=== PATIENT | female | born 1995 | race American Indian/Alaskan Native ===

== ENCOUNTER 2019-06-11 17:59 | Outpatient (CLI) | payer OTHER ==
[2019-06-11 18:46] VITALS: BP 131/92
== END 2019-06-11 18:51 | disposition home or self-care (01) ==
LOC: TRG 17:59
PROVIDERS: ATTEND Obstetrics & Gynecology
DX: O47.1 False labor at or after 37 completed weeks of gestation (principal); Z3A.38 38 weeks gestation of pregnancy

== ENCOUNTER 2019-06-13 11:42 | Outpatient (CLI) | payer OTHER ==
[2019-06-13 12:25] VITALS: BP 129/83
== END 2019-06-13 12:37 | disposition home or self-care (01) ==
LOC: TRG 11:42
PROVIDERS: ATTEND Obstetrics & Gynecology
DX: O47.1 False labor at or after 37 completed weeks of gestation (principal); Z3A.38 38 weeks gestation of pregnancy
CPT/HCPCS: 59025

== ENCOUNTER 2019-06-21 21:26 | Inpatient (IN) | payer OTHER ==
[2019-06-21] MEDS ORDERED: ACETAMINOPHEN 500 MG TAB PO ONE (21:54)
[2019-06-21 23:08] LABS: Bilirubin,Urine NEG (Negative); Blood,Urine SM (Negative); Color,Urine Straw (Yellow); Protein,Urine <15 mg/dL mg/dL (Negative); RBC,Urine < 1.0 /HPF (0.0-6.0); Urobilinogen,Urine < 2.0 mg/dL (<2.0); WBC,Urine < 1.0 /HPF (0.0-6.0)
--- NOTE | 2019-06-21 23:12 | History and Physical Report ---
History of Present Illness Date of examination: 06/21/19 Date of admission: 06/21/19 Chief complaint: headache x1 week; blurry vision History of present illness: Pt presents c/o headache and blurry vision. Initially bp was not elevated in the office but she was noted to have 2+proteinuria and had a 24 hr urine collection turned into the office today. In triage tonight she c/o having blurry vision that started today and headache. Pt admitted for IOL for gestional h ypertention/pre ecalmpasia with severe features. EDC Calculations LMP: 06/25/2019 EDC Confirmation: 06/25/2019 Gestational Age: 12 3/7 weeks Past History : 2 Term Births: 0 Premature Births: 0 Living Children: 0 Para: 0 Mult. Births: 0 Prev : 0 Aborta: 1 Elect. Ab: 0 Spont. Ab: 1 Ectopics: 0 Risk Factors: Smoked Tobacco Use: Never smoker Smokeless Tobacco Use: Never Passive smoke exposure: no Drug use: no HIV high-risk behavior: no Alcohol use: no Exercise: no Seatbelt use: 100 % Dietary Counseling: pn yes Past Medical History: Reviewed history from 12/01/2017 and no changes required: Negative Past Medical History Past Surgical History: Reviewed history from 12/01/2017 and no changes required: Negative Past Surgical History Past Medical History Abnormal PAP: negative Social Hx: Smoking History: Patient has never smoked. Infection History HIV Risk Eval: no Genetic History Congenital Heart Defect: Mom: no Dad: no Jeffrey Disease: Mom: no Dad: no Thalassemia Mom: no Dad: no Neural Tube Defect Mom: no Dad: no Down's Syndrome Mom: no Dad: no Mario-Sachs Mom: no Dad: no Sickle Cell Disease/Trait Mom: no Dad: no Hemophilia Mom: no Dad: no Muscular Dystrophy Mom: no Dad: no Cystic Fibrosis Mom: no Dad: no [place] Chorea Mom: no Dad: no Mental Retardation Mom: no Dad: no Fragile X Mom: no Dad: no Other Genetic/Chromosomal Disorder Mom: no Dad: no Child w/other defect Mom: no Dad: no Enviromental Exposures Xray Exposure: no Medication, drug, or alcohol use since LMP: no Chemical/Other Exposure: no Exposure to Cat Liter: no Hx of Parvovirus (Fifth Disease): no Occupational Exposure to Children: none Active Medications (reviewed today): NAPROSYN 500 MG ORAL TABLET (NAPROXEN) 1 tab po BID prn pain Current Allergies (reviewed today): * SHRIMP (Critical) Past History Past Medical History: no pertinent history Past Surgical History: no surgical history Family/Genetic History: other (see HPI) Social history: no significant social history, single - Obstetrical History Expected Date of Delivery: 06/25/19 Actual Gestation: 39 Week(s) 4 Day(s) : 2 Medications and Allergies Allergies Allergy/AdvReac Type Severity Reaction Status Date / Time seafood AdvReac Severe Anaphylaxis Uncoded 06/11/19 18:22 Review of Systems All systems: negative - Vital Signs Vital signs: Vital Signs Pulse BP 75 136/87 06/21/19 21:46 06/21/19 21:46 Temp Pulse Resp BP Pulse Ox 97.9 F 75 137/91 06/21/19 22:00 06/21/19 23:05 06/21/19 23:05 - Physical Exam Cardiovascular: Normal S1, Normal S2 Lungs: Positive: Clear to auscultation, Normal air movement Abdomen: Positive: normal appearance, soft. Negative: distention Genitourinary (Female): Positive: other (see RN exam) - Obstetrical FHR: category 1 Results Result Diagrams: 06/21/19 22:35 06/21/19 22:35 All other labs normal. Assessment and Plan - Patient Problems (1) 39 weeks gestation of Current Visit: Yes Status: Acute (2) Gestational hypertension Current Visit: Yes Status: Acute Qualifiers: Trimester: third trimester Qualified Code(s): O13.3 - Gestational [pregnan cy-induced] hypertension without significant proteinuria, third trimester Plan to address problem: -labs are pending but pt noted to have 2+protein at last office visit and had headache. Given there are severe features will start magnesium at this time also. -will start serial induction (3) Headache Current Visit: Yes Status: Acute
[2019-06-21] MEDS ORDERED: MINERAL OIL 30 ML ORAL LIQD PO PRN (23:17)
[2019-06-21] MEDS ORDERED: TERBUTALINE 1 MG/1 ML INJ IVP PRN (23:17)
[2019-06-21] MEDS ORDERED: DINOPROSTONE 10 MG VAG SUPP VG ONE (23:17)
[2019-06-21] MEDS ORDERED: ePHEDrine SULFATE 50 MG/1 ML INJ IV PRN (23:17)
[2019-06-21] MEDS ORDERED: TERBUTALINE 1 MG/1 ML INJ SUB-Q PRN (23:17)
[2019-06-21] MEDS ORDERED: LIDOCAINE (2%) 20 MG/1 ML VIAL 20 ML MDV INFILTRATI ONE (23:17)
[2019-06-21] MEDS ORDERED: MAGNESIUM SULFATE 4 GM/100 ML BAG IV ONE (23:21)
[2019-06-21 23:23] LABS: Hemoglobin 10.7 gm/dl (10.1-14.3); Mean Corpuscular HGB Conc 33 % (30-34); Mean Corpuscular Volume 92 fl (79-97); Platelet Count 199 K/mm3 (140-440); Red Blood Count 3.48 M/mm3 (3.65-5.03); Red Cell Distribution Width 14.1 % (13.2-15.2)
[2019-06-21 23:38] LABS: Alanine Aminotransferase 11 units/L (7-56)
[2019-06-21] MEDS ORDERED: OXYTOCIN 20 UNIT/1000ML DRIP 20 UNITS/1,000 ML BAG IV SCH (23:45)
[2019-06-21] MEDS ORDERED: MAGNESIUM SULFATE 40GM/1000ML 40 GM/1,000 ML BAG IV SCH (23:45)
[2019-06-22] MEDS: LACTATED RINGERS 1,000 ML IV SCH ×2 (00:35→14:31)
[2019-06-22 01:18] LABS: Uric Acid 7.5 mg/dL (3.5-7.6)
[2019-06-22] MEDS: fentaNYL 100 MCG/2 ML INJ IV PRN ×2 (03:48→11:13)
--- NOTE | 2019-06-22 08:35 | Progress Note ---
Assessment and Plan A: Pt is a 23 y.o. @ 39 wks. IOL for Pre E. P: Continue mag per protocol Continue pitocin per protocol Zofran ordered for n/v Subjective - Subjective Date of service: 06/22/19 (Pt laying in bed, states doing okay) Principal diagnosis: IOl @ 39wks Objective - Vital Signs Vital Signs: Vital Signs - 12hr 06/21/19 06/21/19 06/21/19 21:46 21:50 22:00 Temperature 97.9 F Pulse Rate 75 83 Respiratory Rate Blood Pressure 136/87 140/95 Blood Pressure [Right] O2 Sat by Pulse Oximetry 06/21/19 06/21/19 06/21/19 22:05 22:21 22:40 Temperature Pulse Rate 78 70 77 Respiratory Rate Blood Pressure 128/79 132/81 134/88 Blood Pressure [Right] O2 Sat by Pulse Oximetry 06/21/19 06/21/19 06/21/19 22:51 23:05 23:20 Temperature Pulse Rate 60 75 68 Respiratory Rate Blood Pressure 156/92 137/91 143/95 Blood Pressure [Right] O2 Sat by Pulse Oximetry 06/21/19 06/21/19 06/21/19 23:38 23:53 23:54 Temperature Pulse Rate 75 88 72 Respiratory Rate Blood Pressure 155/90 154/93 147/78 Blood Pressure [Right] O2 Sat by Pulse Oximetry 06/22/19 06/22/19 06/22/19 00:07 00:20 00:53 Temperature Pulse Rate 62 64 69 Respiratory Rate Blood Pressure 155/82 164/88 140/90 Blood Pressure [Right] O2 Sat by Pulse Oximetry 06/22/19 06/22/19 06/22/19 00:56 00:59 01:01 Temperature Pulse Rate 68 80 89 Respiratory Rate Blood Pressure 131/78 Blood Pressure [Right] O2 Sat by Pulse 97 97 Oximetry 06/22/19 06/22/19 06/22/19 01:05 01:06 01:10 Temperature Pulse Rate 93 H 94 H 94 H Respiratory Rate Blood Pressure 122/78 127/78 Blood Pressure [Right] O2 Sat by Pulse 97 Oximetry 06/22/19 06/22/19 06/22/19 01:11 01:14 01:15 Temperature 98.7 F Pulse Rate 101 H 100 H 97 H Respiratory 18 Rate Blood Pressure 133/77 Blood Pressure 127/78 [Right] O2 Sat by Pulse 97 92 98 Oximetry 06/22/19 06/22/19 06/22/19 01:16 01:18 01:21 Temperature Pulse Rate 85 101 H 117 H Respiratory Rate Blood Pressure 131/78 Blood Pressure [Right] O2 Sat by Pulse 97 96 Oximetry 06/22/19 06/22/19 06/22/19 01:24 01:26 01:28 Temperature Pulse Rate 83 95 H 91 H Respiratory Rate Blood Pressure 130/76 118/69 Blood Pressure [Right] O2 Sat by Pulse 94 97 Oximetry 06/22/19 06/22/19 06/22/19 01:31 01:32 01:33 Temperature Pulse Rate 94 H 83 83 Respiratory Rate Blood Pressure 125/71 Blood Pressure [Right] O2 Sat by Pulse 95 94 Oximetry 06/22/19 06/22/19 06/22/19 01:36 01:38 01:41 Temperature Pulse Rate 103 H 89 79 Respiratory Rate Blood Pressure 122/72 Blood Pressure [Right] O2 Sat by Pulse 96 97 Oximetry 06/22/19 06/22/19 06/22/19 01:45 01:46 01:50 Temperature Pulse Rate 89 94 H 79 Respiratory Rate Blood Pressure 127/81 137/83 Blood Pressure [Right] O2 Sat by Pulse 98 Oximetry 06/22/19 06/22/19 06/22/19 01:51 01:56 02:01 Temperature Pulse Rate 81 81 102 H Respiratory Rate Blood Pressure Blood Pressure [Right] O2 Sat by Pulse 97 96 97 Oximetry 06/22/19 06/22/19 06/22/19 02:12 02:17 02:22 Temperature Pulse Rate 110 H 78 80 Respiratory Rate Blood Pressure Blood Pressure [Right] O2 Sat by Pulse 95 96 98 Oximetry 06/22/19 06/22/19 06/22/19 02:25 02:27 02:32 Temperature Pulse Rate 81 85 90 Respiratory Rate Blood Pressure 139/90 Blood Pressure [Right] O2 Sat by Pulse 97 96 Oximetry 06/22/19 06/22/19 06/22/19 02:37 02:42 02:47 Temperature Pulse Rate 89 106 H 76 Respiratory Rate Blood Pressure Blood Pressure [Right] O2 Sat by Pulse 97 97 96 Oximetry 06/22/19 06/22/19 06/22/19 02:52 02:55 02:57 Temperature Pulse Rate 83 85 81 Respiratory Rate Blood Pressure 117/71 Blood Pressure [Right] O2 Sat by Pulse 97 97 Oximetry 06/22/19 06/22/19 06/22/19 03:02 03:08 03:13 Temperature Pulse Rate 104 H 90 92 H Respiratory Rate Blood Pressure Blood Pressure [Right] O2 Sat by Pulse 96 97 97 Oximetry 06/22/19 06/22/19 06/22/19 03:18 03:23 03:25 Temperature Pulse Rate 92 H 89 88 Respiratory Rate Blood Pressure 134/86 Blood Pressure [Right] O2 Sat by Pulse 97 97 Oximetry 06/22/19 06/22/19 06/22/19 03:28 03:33 03:38 Temperature Pulse Rate 86 90 82 Respiratory Rate Blood Pressure Blood Pressure [Right] O2 Sat by Pulse 97 98 98 Oximetry 06/22/19 06/22/19 06/22/19 03:43 03:48 03:53 Temperature Pulse Rate 86 85 92 H Respiratory Rate Blood Pressure Blood Pressure [Right] O2 Sat by Pulse 97 97 96 Oximetry 06/22/19 06/22/19 06/22/19 03:54 03:55 03:58 Temperature Pulse Rate 94 H 90 101 H Respiratory Rate Blood Pressure 141/84 Blood Pressure [Right] O2 Sat by Pulse 94 95 Oximetry 06/22/19 06/22/19 06/22/19 04:03 04:08 04:16 Temperature Pulse Rate 91 H 89 88 Respiratory Rate Blood Pressure Blood Pressure [Right] O2 Sat by Pulse 97 95 95 Oximetry 06/22/19 06/22/19 06/22/19 04:21 04:24 04:26 Temperature Pulse Rate 88 95 H 86 Respiratory Rate Blood Pressure 132/79 Blood Pressure [Right] O2 Sat by Pulse 95 94 95 Oximetry 06/22/19 06/22/19 06/22/19 04:31 04:36 04:40 Temperature Pulse Rate 95 H 92 H 94 H Respiratory Rate Blood Pressure Blood Pressure [Right] O2 Sat by Pulse 94 95 94 Oximetry 06/22/19 06/22/19 06/22/19 04:41 04:46 04:47 Temperature Pulse Rate 96 H 91 H 92 H Respiratory Rate Blood Pressure Blood Pressure [Right] O2 Sat by Pulse 95 95 94 Oximetry 06/22/19 06/22/19 06/22/19 04:51 04:53 04:55 Temperature Pulse Rate 104 H 93 H 86 Respiratory Rate Blood Pressure 132/85 Blood Pressure [Right] O2 Sat by Pulse 96 94 Oximetry 06/22/19 06/22/19 06/22/19 04:56 05:01 05:05 Temperature Pulse Rate 89 97 H 105 H Respiratory Rate Blood Pressure Blood Pressure [Right] O2 Sat by Pulse 95 96 94 Oximetry 06/22/19 06/22/19 06/22/19 05:06 05:11 05:16 Temperature Pulse Rate 104 H 90 93 H Respiratory Rate Blood Pressure Blood Pressure [Right] O2 Sat by Pulse 95 93 93 Oximetry 06/22/19 06/22/19 06/22/19 05:21 05:25 05:26 Temperature Pulse Rate 92 H 92 H 91 H Respiratory Rate Blood Pressure 127/80 Blood Pressure [Right] O2 Sat by Pulse 93 94 Oximetry 06/22/19 06/22/19 06/22/19 05:31 05:36 05:41 Temperature Pulse Rate 89 93 H 93 H Respiratory Rate Blood Pressure Blood Pressure [Right] O2 Sat by Pulse 94 93 93 Oximetry 06/22/19 06/22/19 06/22/19 05:46 05:47 05:51 Temperature Pulse Rate 89 91 H 95 H Respiratory Rate Blood Pressure Blood Pressure [Right] O2 Sat by Pulse 94 92 97 Oximetry 06/22/19 06/22/19 06/22/19 05:55 05:56 06:01 Temperature Pulse Rate 94 H 96 H 105 H Respiratory Rate Blood Pressure 146/84 Blood Pressure [Right] O2 Sat by Pulse 96 95 Oximetry 06/22/19 06/22/19 06/22/19 06:06 06:11 06:16 Temperature Pulse Rate 91 H 94 H 87 Respiratory Rate Blood Pressure Blood Pressure [Right] O2 Sat by Pulse 96 95 95 Oximetry 06/22/19 06/22/19 06/22/19 06:21 06:25 06:26 Temperature Pulse Rate 93 H 88 91 H Respiratory Rate Blood Pressure 116/64 Blood Pressure [Right] O2 Sat by Pulse 95 94 Oximetry 06/22/19 06/22/19 06/22/19 06:31 06:36 06:44 Temperature Pulse Rate 94 H 93 H 95 H Respiratory Rate Blood Pressure Blood Pressure [Right] O2 Sat by Pulse 93 97 95 Oximetry 06/22/19 06/22/19 06/22/19 06:49 06:53 06:54 Temperature Pulse Rate 97 H 92 H 103 H Respiratory Rate Blood Pressure Blood Pressure [Right] O2 Sat by Pulse 95 92 95 Oximetry 06/22/19 06/22/19 06/22/19 06:57 06:59 07:04 Temperature Pulse Rate 93 H 92 H 91 H Respiratory Rate Blood Pressure 124/71 Blood Pressure [Right] O2 Sat by Pulse 95 94 Oximetry 06/22/19 06/22/19 06/22/19 07:09 07:14 07:17 Temperature Pulse Rate 92 H 95 H 93 H Respiratory Rate Blood Pressure Blood Pressure [Right] O2 Sat by Pulse 93 93 90 Oximetry 06/22/19 06/22/19 06/22/19 07:19 07:23 07:25 Temperature Pulse Rate 94 H 92 H 88 Respiratory Rate Blood Pressure 118/68 Blood Pressure [Right] O2 Sat by Pulse 92 94 Oximetry 06/22/19 06/22/19 06/22/19 07:27 07:29 07:34 Temperature Pulse Rate 93 H 93 H 94 H Respiratory Rate Blood Pressure 128/78 Blood Pressure [Right] O2 Sat by Pulse 92 93 96 Oximetry 06/22/19 06/22/19 06/22/19 07:36 07:39 07:44 Temperature 97.7 F Pulse Rate 97 H 95 H 93 H Respiratory 18 Rate Blood Pressure Blood Pressure 128/78 [Right] O2 Sat by Pulse 97 95 96 Oximetry 06/22/19 06/22/19 06/22/19 07:49 07:54 07:55 Temperature Pulse Rate 90 99 H 96 H Respiratory Rate Blood Pressure 124/73 Blood Pressure [Right] O2 Sat by Pulse 96 96 Oximetry 06/22/19 06/22/19 06/22/19 07:59 08:04 08:09 Temperature Pulse Rate 96 H 98 H 100 H Respiratory Rate Blood Pressure Blood Pressure [Right] O2 Sat by Pulse 97 95 96 Oximetry 06/22/19 06/22/19 06/22/19 08:14 08:23 08:24 Temperature Pulse Rate 97 H 115 H 114 H Respiratory Rate Blood Pressure 140/97 Blood Pressure [Right] O2 Sat by Pulse 97 96 Oximetry 06/22/19 06/22/19 06/22/19 08:27 08:28 08:33 Temperature Pulse Rate 101 H 104 H 99 H Respiratory Rate Blood Pressure 147/97 Blood Pressure [Right] O2 Sat by Pulse 95 96 Oximetry - Exam Breasts: deferred Cardiovascular: Regular rate Lungs: Normal air movement Abdomen: Present: normal appearance Vulva: both: normal FHR: category 1 Uterine Contraction Monitor Mode: External - Labs Labs: Abnormal Labs 06/21/19 06/21/19 06/22/19 22:35 22:35 02:27 RBC 3.48 L Magnesium 3.80 H Lactate Dehydrogenase 272 H 06/22/19 05:50 RBC Magnesium 4.40 H Lactate Dehydrogenase Laboratory Results - last 24 hr 06/21/19 06/21/19 06/21/19 22:30 22:35 22:35 WBC 8.5 RBC 3.48 L Hgb 10.7 Hct 32.0 MCV 92 MCH 31 MCHC 33 RDW 14.1 Plt Count 199 Creatinine 0.7 Estimated GFR > 60 Uric Acid 7.5 Magnesium AST 19 ALT 11 Lactate Dehydrogenase 272 H Urine Color Urine Turbidity Urine pH Ur Specific [place] Urine Protein Urine Glucose (UA) Urine Ketones Urine Blood Urine Nitrite Urine Bilirubin Urine Urobilinogen Ur Leukocyte Esterase Urine WBC (Auto) Urine RBC (Auto) U Epithel Cells (Auto) Blood Type O POSITIVE Antibody Screen Negative 06/21/19 06/22/19 06/22/19 22:55 02:27 05:50 WBC RBC Hgb Hct MCV MCH MCHC RDW Plt Count Creatinine Estimated GFR Uric Acid Magnesium 3.80 H 4.40 H AST ALT Lactate Dehydrogenase Urine Color Straw Urine Turbidity Clear Urine pH 6.0 Ur Specific [place] 1.009 Urine Protein <15 mg/dl Urine Glucose (UA) Neg Urine Ketones Neg Urine Blood Sm Urine Nitrite Neg Urine Bilirubin Neg Urine Urobilinogen < 2.0 Ur Leukocyte Esterase Neg Urine WBC (Auto) < 1.0 Urine RBC (Auto) < 1.0 U Epithel Cells (Auto) 1.0 Blood Type Antibody Screen
[2019-06-22] MEDS ORDERED: ONDANSETRON 4 MG/2 ML INJ IV PRN (08:37)
--- NOTE | 2019-06-22 10:15 | Progress Note ---
Assessment and Plan A: 23 y.o. @ term IOL for Pre E with cervidil placed. P: Continue with Magnesium per protocol. Continue with cervidil at this time. Subjective - Subjective Date of service: 06/22/19 (Pt sitting up in bed) Principal diagnosis: IOl @ 39wks Objective - Vital Signs Vital Signs: Vital Signs - 12hr 06/21/19 06/21/19 06/21/19 22:21 22:40 22:51 Temperature Pulse Rate 70 77 60 Respiratory Rate Blood Pressure 132/81 134/88 156/92 Blood Pressure [Right] O2 Sat by Pulse Oximetry 06/21/19 06/21/19 06/21/19 23:05 23:20 23:38 Temperature Pulse Rate 75 68 75 Respiratory Rate Blood Pressure 137/91 143/95 155/90 Blood Pressure [Right] O2 Sat by Pulse Oximetry 06/21/19 06/21/19 06/22/19 23:53 23:54 00:07 Temperature Pulse Rate 88 72 62 Respiratory Rate Blood Pressure 154/93 147/78 155/82 Blood Pressure [Right] O2 Sat by Pulse Oximetry 06/22/19 06/22/19 06/22/19 00:20 00:53 00:56 Temperature Pulse Rate 64 69 68 Respiratory Rate Blood Pressure 164/88 140/90 Blood Pressure [Right] O2 Sat by Pulse 97 Oximetry 06/22/19 06/22/19 06/22/19 00:59 01:01 01:05 Temperature Pulse Rate 80 89 93 H Respiratory Rate Blood Pressure 131/78 122/78 Blood Pressure [Right] O2 Sat by Pulse 97 Oximetry 06/22/19 06/22/19 06/22/19 01:06 01:10 01:11 Temperature Pulse Rate 94 H 94 H 101 H Respiratory Rate Blood Pressure 127/78 Blood Pressure [Right] O2 Sat by Pulse 97 97 Oximetry 06/22/19 06/22/19 06/22/19 01:14 01:15 01:16 Temperature 98.7 F Pulse Rate 100 H 97 H 85 Respiratory 18 Rate Blood Pressure 133/77 Blood Pressure 127/78 [Right] O2 Sat by Pulse 92 98 97 Oximetry 06/22/19 06/22/19 06/22/19 01:18 01:21 01:24 Temperature Pulse Rate 101 H 117 H 83 Respiratory Rate Blood Pressure 131/78 130/76 Blood Pressure [Right] O2 Sat by Pulse 96 94 Oximetry 06/22/19 06/22/19 06/22/19 01:26 01:28 01:31 Temperature Pulse Rate 95 H 91 H 94 H Respiratory Rate Blood Pressure 118/69 Blood Pressure [Right] O2 Sat by Pulse 97 95 Oximetry 06/22/19 06/22/19 06/22/19 01:32 01:33 01:36 Temperature Pulse Rate 83 83 103 H Respiratory Rate Blood Pressure 125/71 Blood Pressure [Right] O2 Sat by Pulse 94 96 Oximetry 06/22/19 06/22/19 06/22/19 01:38 01:41 01:45 Temperature Pulse Rate 89 79 89 Respiratory Rate Blood Pressure 122/72 127/81 Blood Pressure [Right] O2 Sat by Pulse 97 Oximetry 06/22/19 06/22/19 06/22/19 01:46 01:50 01:51 Temperature Pulse Rate 94 H 79 81 Respiratory Rate Blood Pressure 137/83 Blood Pressure [Right] O2 Sat by Pulse 98 97 Oximetry 06/22/19 06/22/19 06/22/19 01:56 02:01 02:12 Temperature Pulse Rate 81 102 H 110 H Respiratory Rate Blood Pressure Blood Pressure [Right] O2 Sat by Pulse 96 97 95 Oximetry 06/22/19 06/22/19 06/22/19 02:17 02:22 02:25 Temperature Pulse Rate 78 80 81 Respiratory Rate Blood Pressure 139/90 Blood Pressure [Right] O2 Sat by Pulse 96 98 Oximetry 06/22/19 06/22/19 06/22/19 02:27 02:32 02:37 Temperature Pulse Rate 85 90 89 Respiratory Rate Blood Pressure Blood Pressure [Right] O2 Sat by Pulse 97 96 97 Oximetry 06/22/19 06/22/19 06/22/19 02:42 02:47 02:52 Temperature Pulse Rate 106 H 76 83 Respiratory Rate Blood Pressure Blood Pressure [Right] O2 Sat by Pulse 97 96 97 Oximetry 06/22/19 06/22/19 06/22/19 02:55 02:57 03:02 Temperature Pulse Rate 85 81 104 H Respiratory Rate Blood Pressure 117/71 Blood Pressure [Right] O2 Sat by Pulse 97 96 Oximetry 06/22/19 06/22/19 06/22/19 03:08 03:13 03:18 Temperature Pulse Rate 90 92 H 92 H Respiratory Rate Blood Pressure Blood Pressure [Right] O2 Sat by Pulse 97 97 97 Oximetry 06/22/19 06/22/19 06/22/19 03:23 03:25 03:28 Temperature Pulse Rate 89 88 86 Respiratory Rate Blood Pressure 134/86 Blood Pressure [Right] O2 Sat by Pulse 97 97 Oximetry 06/22/19 06/22/19 06/22/19 03:33 03:38 03:43 Temperature Pulse Rate 90 82 86 Respiratory Rate Blood Pressure Blood Pressure [Right] O2 Sat by Pulse 98 98 97 Oximetry 06/22/19 06/22/19 06/22/19 03:48 03:53 03:54 Temperature Pulse Rate 85 92 H 94 H Respiratory Rate Blood Pressure Blood Pressure [Right] O2 Sat by Pulse 97 96 94 Oximetry 06/22/19 06/22/19 06/22/19 03:55 03:58 04:03 Temperature Pulse Rate 90 101 H 91 H Respiratory Rate Blood Pressure 141/84 Blood Pressure [Right] O2 Sat by Pulse 95 97 Oximetry 06/22/19 06/22/19 06/22/19 04:08 04:16 04:21 Temperature Pulse Rate 89 88 88 Respiratory Rate Blood Pressure Blood Pressure [Right] O2 Sat by Pulse 95 95 95 Oximetry 06/22/19 06/22/19 06/22/19 04:24 04:26 04:31 Temperature Pulse Rate 95 H 86 95 H Respiratory Rate Blood Pressure 132/79 Blood Pressure [Right] O2 Sat by Pulse 94 95 94 Oximetry 06/22/19 06/22/19 06/22/19 04:36 04:40 04:41 Temperature Pulse Rate 92 H 94 H 96 H Respiratory Rate Blood Pressure Blood Pressure [Right] O2 Sat by Pulse 95 94 95 Oximetry 06/22/19 06/22/19 06/22/19 04:46 04:47 04:51 Temperature Pulse Rate 91 H 92 H 104 H Respiratory Rate Blood Pressure Blood Pressure [Right] O2 Sat by Pulse 95 94 96 Oximetry 06/22/19 06/22/19 06/22/19 04:53 04:55 04:56 Temperature Pulse Rate 93 H 86 89 Respiratory Rate Blood Pressure 132/85 Blood Pressure [Right] O2 Sat by Pulse 94 95 Oximetry 06/22/19 06/22/19 06/22/19 05:01 05:05 05:06 Temperature Pulse Rate 97 H 105 H 104 H Respiratory Rate Blood Pressure Blood Pressure [Right] O2 Sat by Pulse 96 94 95 Oximetry 06/22/19 06/22/19 06/22/19 05:11 05:16 05:21 Temperature Pulse Rate 90 93 H 92 H Respiratory Rate Blood Pressure Blood Pressure [Right] O2 Sat by Pulse 93 93 93 Oximetry 06/22/19 06/22/19 06/22/19 05:25 05:26 05:31 Temperature Pulse Rate 92 H 91 H 89 Respiratory Rate Blood Pressure 127/80 Blood Pressure [Right] O2 Sat by Pulse 94 94 Oximetry 06/22/19 06/22/19 06/22/19 05:36 05:41 05:46 Temperature Pulse Rate 93 H 93 H 89 Respiratory Rate Blood Pressure Blood Pressure [Right] O2 Sat by Pulse 93 93 94 Oximetry 06/22/19 06/22/19 06/22/19 05:47 05:51 05:55 Temperature Pulse Rate 91 H 95 H 94 H Respiratory Rate Blood Pressure 146/84 Blood Pressure [Right] O2 Sat by Pulse 92 97 Oximetry 06/22/19 06/22/19 06/22/19 05:56 06:01 06:06 Temperature Pulse Rate 96 H 105 H 91 H Respiratory Rate Blood Pressure Blood Pressure [Right] O2 Sat by Pulse 96 95 96 Oximetry 06/22/19 06/22/19 06/22/19 06:11 06:16 06:21 Temperature Pulse Rate 94 H 87 93 H Respiratory Rate Blood Pressure Blood Pressure [Right] O2 Sat by Pulse 95 95 95 Oximetry 06/22/19 06/22/19 06/22/19 06:25 06:26 06:31 Temperature Pulse Rate 88 91 H 94 H Respiratory Rate Blood Pressure 116/64 Blood Pressure [Right] O2 Sat by Pulse 94 93 Oximetry 06/22/19 06/22/19 06/22/19 06:36 06:44 06:49 Temperature Pulse Rate 93 H 95 H 97 H Respiratory Rate Blood Pressure Blood Pressure [Right] O2 Sat by Pulse 97 95 95 Oximetry 06/22/19 06/22/19 06/22/19 06:53 06:54 06:57 Temperature Pulse Rate 92 H 103 H 93 H Respiratory Rate Blood Pressure 124/71 Blood Pressure [Right] O2 Sat by Pulse 92 95 Oximetry 12/24/19 12/24/19 12/24/19 06:59 07:04 07:09 Temperature Pulse Rate 92 H 91 H 92 H Respiratory Rate Blood Pressure Blood Pressure [Right] O2 Sat by Pulse 95 94 93 Oximetry 06/22/19 06/22/19 06/22/19 07:14 07:17 07:19 Temperature Pulse Rate 95 H 93 H 94 H Respiratory Rate Blood Pressure Blood Pressure [Right] O2 Sat by Pulse 93 90 92 Oximetry 06/22/19 06/22/19 06/22/19 07:23 07:25 07:27 Temperature Pulse Rate 92 H 88 93 H Respiratory Rate Blood Pressure 118/68 Blood Pressure [Right] O2 Sat by Pulse 94 92 Oximetry 06/22/19 06/22/19 06/22/19 07:29 07:34 07:36 Temperature 97.7 F Pulse Rate 93 H 94 H 97 H Respiratory 18 Rate Blood Pressure 128/78 Blood Pressure 128/78 [Right] O2 Sat by Pulse 93 96 97 Oximetry 06/22/19 06/22/19 06/22/19 07:39 07:44 07:49 Temperature Pulse Rate 95 H 93 H 90 Respiratory Rate Blood Pressure Blood Pressure [Right] O2 Sat by Pulse 95 96 96 Oximetry 06/22/19 06/22/19 06/22/19 07:54 07:55 07:59 Temperature Pulse Rate 99 H 96 H 96 H Respiratory Rate Blood Pressure 124/73 Blood Pressure [Right] O2 Sat by Pulse 96 97 Oximetry 06/22/19 06/22/19 06/22/19 08:00 08:04 08:09 Temperature Pulse Rate 98 H 100 H Respiratory 16 Rate Blood Pressure Blood Pressure [Right] O2 Sat by Pulse 97 95 96 Oximetry 06/22/19 06/22/19 06/22/19 08:14 08:23 08:24 Temperature Pulse Rate 97 H 115 H 114 H Respiratory Rate Blood Pressure 140/97 Blood Pressure [Right] O2 Sat by Pulse 97 96 Oximetry 06/22/19 06/22/19 06/22/19 08:27 08:28 08:33 Temperature Pulse Rate 101 H 104 H 99 H Respiratory Rate Blood Pressure 147/97 Blood Pressure [Right] O2 Sat by Pulse 95 96 Oximetry 06/22/19 06/22/19 06/22/19 08:38 08:43 08:48 Temperature Pulse Rate 100 H 100 H 101 H Respiratory Rate Blood Pressure Blood Pressure [Right] O2 Sat by Pulse 96 96 96 Oximetry 06/22/19 06/22/19 06/22/19 08:53 08:54 08:58 Temperature Pulse Rate 104 H 114 H 100 H Respiratory Rate Blood Pressure 133/95 Blood Pressure [Right] O2 Sat by Pulse 95 95 Oximetry 06/22/19 06/22/19 06/22/19 09:00 09:03 09:07 Temperature Pulse Rate 97 H 95 H Respiratory 18 Rate Blood Pressure Blood Pressure [Right] O2 Sat by Pulse 96 96 Oximetry 06/22/19 06/22/19 06/22/19 09:13 09:17 09:23 Temperature Pulse Rate 101 H 95 H 92 H Respiratory Rate Blood Pressure Blood Pressure [Right] O2 Sat by Pulse 96 94 96 Oximetry 06/22/19 06/22/19 06/22/19 09:25 09:28 09:33 Temperature Pulse Rate 94 H 99 H 97 H Respiratory Rate Blood Pressure 131/88 Blood Pressure [Right] O2 Sat by Pulse 96 95 Oximetry 06/22/19 06/22/19 06/22/19 09:38 09:44 09:50 Temperature Pulse Rate 102 H 94 H 94 H Respiratory Rate Blood Pressure Blood Pressure [Right] O2 Sat by Pulse 97 98 97 Oximetry 06/22/19 06/22/19 06/22/19 09:55 10:00 10:03 Temperature Pulse Rate 90 90 Respiratory 18 Rate Blood Pressure 135/90 Blood Pressure [Right] O2 Sat by Pulse 98 96 Oximetry 06/22/19 06/22/19 10:05 10:10 Temperature Pulse Rate 97 H 89 Respiratory Rate Blood Pressure Blood Pressure [Right] O2 Sat by Pulse 96 97 Oximetry - Exam Vulva: both: normal FHR: category 1 Uterine Contraction Monitor Mode: External Cervical Dilatation: 0.5 (Cervidil in place) Cervical Effacement Percentage: 20 station: -4 Uterine Contraction Pattern: Irregular Uterine Tone Measurement Phase: Resting Uterine Contraction Intensity: Mild Extremities: normal Deep Tendon Reflex Grade: Normal +2 - Labs Labs: Abnormal Labs 06/21/19 06/21/19 06/22/19 22:35 22:35 02:27 RBC 3.48 L Magnesium 3.80 H Lactate Dehydrogenase 272 H 06/22/19 05:50 RBC Magnesium 4.40 H Lactate Dehydrogenase Laboratory Results - last 24 hr 06/21/19 06/21/19 06/21/19 22:30 22:35 22:35 WBC 8.5 RBC 3.48 L Hgb 10.7 Hct 32.0 MCV 92 MCH 31 MCHC 33 RDW 14.1 Plt Count 199 Creatinine 0.7 Estimated GFR > 60 Uric Acid 7.5 Magnesium AST 19 ALT 11 Lactate Dehydrogenase 272 H Urine Color Urine Turbidity Urine pH Ur Specific [place] Urine Protein Urine Glucose (UA) Urine Ketones Urine Blood Urine Nitrite Urine Bilirubin Urine Urobilinogen Ur Leukocyte Esterase Urine WBC (Auto) Urine RBC (Auto) U Epithel Cells (Auto) Blood Type O POSITIVE Antibody Screen Negative 06/21/19 06/22/19 06/22/19 22:55 02:27 05:50 WBC RBC Hgb Hct MCV MCH MCHC RDW Plt Count Creatinine Estimated GFR Uric Acid Magnesium 3.80 H 4.40 H AST ALT Lactate Dehydrogenase Urine Color Straw Urine Turbidity Clear Urine pH 6.0 Ur Specific [place] 1.009 Urine Protein <15 mg/dl Urine Glucose (UA) Neg Urine Ketones Neg Urine Blood Sm Urine Nitrite Neg Urine Bilirubin Neg Urine Urobilinogen < 2.0 Ur Leukocyte Esterase Neg Urine WBC (Auto) < 1.0 Urine RBC (Auto) < 1.0 U Epithel Cells (Auto) 1.0 Blood Type Antibody Screen
[2019-06-22] MEDS ORDERED: NALOXONE 2 MG/2 ML INJ IV PRN (13:55)
--- NOTE | 2019-06-22 13:57 | Anesthesia Consultation ---
Anesthesia Consult and Med Hx Date of service: 06/22/19 - Airway Anesthetic Teeth Evaluation: Good ROM Head & Neck: Adequate Mental/Hyoid Distance: Adequate Mallampati Class: Class II Intubation Access Assessment: Probably Good - Pulmonary Exam CTA: Yes - Cardiac Exam Cardiac Exam: RRR - Pre-Operative Health Status ASA Pre-Surgery Classification: ASA2 Proposed Anesthetic Plan: Epidural - Pulmonary Hx Smoking: No Hx Asthma: No Hx Respiratory Symptoms: No SOB: No COPD: No Home Oxygen Therapy: No Hx Pneumonia: No Hx Sleep Apnea: No - Cardiovascular System Hx Hypertension: No Hx Coronary Artery Disease: No Hx Heart Attack/AMI: No Hx Angina: No Hx Percutaneous Transluminal Coronary Angioplasty (PTCA): No Hx Cardia Arrhythmia: No Hx Pacemaker: No Hx Internal Defibrillator: No Hx Valvular Heart Disease: No Hx Heart Murmur: No Hx Peripheral Vascular Disease: No - Central Nervous System Hx Neuromuscular Disorder: No Hx Seizures: No CVA: No Hx Back Pain: No Hx Psychiatric Problems: No - Gastrointestinal Hx Ulcer: No Hx Gastroesophageal Reflux Disease: Yes - Endocrine Hx Renal Disease: No Hx End Stage Renal Disease: No Hx Cirrhosis: No Hx Liver Disease: No Hx Insulin Dependent Diabetes: No Hx Non-Insulin Dependent Diabetes: No Hx Thyroid Disease: No Hx Hypothyroidism: No Hx Hyperthyroidism: No - Hematic Hx Anemia: No Hx Sickle Cell Disease: No - Other Systems Hx Alcohol Use: No Hx Substance Use: No Hx Cancer: No Hx Obesity: Yes
[2019-06-22] MEDS ORDERED: OXYTOCIN DRIP 30 UNITS/500 ML BAG IV SCH (14:00)
[2019-06-22] MEDS ORDERED: fentaNYL-BUPIV 2 MCG/ML-0.125% 200 MCG/100 ML BAG EPIDURAL SCH (14:00)
[2019-06-22] MEDS ORDERED: DEXMEDETOMIDINE 200 MCG/2 ML VIAL IV ONE (14:04)
[2019-06-22] MEDS: ePHEDrine SULFATE 50 MG/1 ML INJ IV PRN ×2 (14:45→14:47)
--- NOTE | 2019-06-22 20:01 | Procedure Note ---
OB Delivery Note - Delivery Date of Delivery: 06/22/19 Surgeon: SHERWIN SURESH Estimated blood loss: other (450cc) - Vaginal Delivery position: OA Intrapartum events: gestational hypertension Delivery induction: cervidil Delivery augmentation: rupture of membranes, pitocin Delivery monitor: external FHT, external uterine, internal FHT, internal uterine Route of delivery: Delivery placenta: spontaneous Delivery cord: nuchal cord (easily reduced) Delivery laceration: 2nd degree (midline), vaginal side wall (bilateral laceration) Delivery repair: vicryl Anesthesia: epidural - Infant A at 1 minute: 8 at 5 minutes: 9 (6lbs 4oz) Infant Gender: Female
[2019-06-23] MEDS: LACTATED RINGERS 1,000 ML IV SCH (08:36)
[2019-06-23] MEDS ORDERED: MAGNESIUM HYDROXIDE (MOM) ORAL LIQD UDC PO PRN ×2 (08:41→22:00)
[2019-06-23] MEDS ORDERED: diphenhydrAMINE 25 MG CAP PO PRN ×2 (08:41→17:38)
[2019-06-23] MEDS ORDERED: HYDROcodone/ACETAMINOPHEN 5-325 MG TAB PO PRN (08:41)
[2019-06-23] MEDS ORDERED: PROMETHAZINE 25 MG TAB PO PRN ×2 (08:41→17:38)
[2019-06-23] MEDS ORDERED: WITCH HAZEL/ GLYCERIN PAD TP PRN ×2 (08:41→17:38)
[2019-06-23] MEDS ORDERED: LANOLIN/ZINC/DIMETHICONE (LANSINOH) 7 GM TP PRN ×2 (08:41→17:38)
[2019-06-23] MEDS ORDERED: ACETAMINOPHEN 325 MG TAB PO PRN ×2 (08:41→17:38)
--- NOTE | 2019-06-23 09:40 | Progress Note ---
Assessment and Plan - Patient Problems (1) (spontaneous vaginal delivery) Current Visit: Yes Status: Acute (2) Gestational hypertension Current Visit: Yes Status: Acute Qualifiers: Trimester: third trimester Qualified Code(s): O13.3 - Gestational [-induced] hypertension without significant proteinuria, third trimester Plan to address problem: Doinig well, Continue MgSO4 for now, will allow to MB at 1800. Subjective - Subjective Date of service: 06/23/19 Principal diagnosis: PPD#1; , GHTN Interval history: Sitting in bed with baby in her arm, no complaints, minimal bleeding Patient reports: appetite normal, voiding normally, pain well controlled Objective - Vital Signs Latest vital signs: Vital Signs Temp Pulse Resp BP BP Pulse Ox 06/23/19 09:32 100 H 98 06/23/19 09:27 99 H 98 06/23/19 09:22 106 H 98 06/23/19 09:17 104 H 98 06/23/19 09:12 90 96 06/23/19 09:09 96 H 86 06/23/19 09:07 94 H 97 06/23/19 09:02 99 H 94 06/23/19 08:57 95 H 97 06/23/19 08:52 99 H 97 06/23/19 08:47 96 H 96 06/23/19 08:46 96 H 133/85 06/23/19 08:42 90 96 06/23/19 08:37 90 96 06/23/19 08:32 96 H 133/86 95 06/23/19 08:27 88 97 06/23/19 08:22 85 98 06/23/19 08:17 87 97 06/23/19 08:15 18 06/23/19 08:12 87 97 06/23/19 08:07 88 97 06/23/19 08:02 103 H 99 06/23/19 07:57 102 H 98 06/23/19 07:52 92 H 97 06/23/19 07:47 93 H 98 06/23/19 07:42 92 H 97 06/23/19 07:37 92 H 98 06/23/19 07:32 91 H 98 06/23/19 07:27 94 H 98 06/23/19 07:23 18 06/23/19 07:22 91 H 98 06/23/19 07:17 96 H 99 06/23/19 07:12 97 H 98 06/23/19 07:09 98.7 F 101 H 18 120/75 98 06/23/19 07:07 98 H 120/75 99 06/23/19 07:02 97 H 98 06/23/19 06:57 104 H 99 06/23/19 06:52 103 H 99 06/23/19 06:47 105 H 98 06/23/19 06:46 97 H 121/68 06/23/19 06:42 101 H 97 06/23/19 06:37 101 H 97 06/23/19 06:32 101 H 98 06/23/19 06:27 108 H 97 06/23/19 06:22 102 H 97 06/23/19 06:17 105 H 97 06/23/19 06:15 16 06/23/19 06:12 114 H 97 06/23/19 06:07 107 H 98 06/23/19 06:02 103 H 98 06/23/19 05:57 104 H 97 06/23/19 05:52 108 H 96 06/23/19 05:47 117 H 98 06/23/19 05:46 110 H 118/59 06/23/19 05:42 115 H 97 06/23/19 05:37 119 H 98 06/23/19 05:32 114 H 97 06/23/19 05:27 104 H 98 06/23/19 05:22 110 H 98 06/23/19 05:17 102 H 98 06/23/19 05:12 103 H 98 06/23/19 05:07 108 H 99 06/23/19 05:02 114 H 98 06/23/19 04:57 118 H 97 06/23/19 04:52 121 H 98 06/23/19 04:47 117 H 98 06/23/19 04:46 117 H 101/60 06/23/19 04:42 110 H 98 06/23/19 04:37 112 H 98 06/23/19 04:32 124 H 98 06/23/19 04:27 113 H 95 06/23/19 04:22 116 H 95 06/23/19 04:17 121 H 95 06/23/19 04:12 114 H 96 06/23/19 04:07 112 H 97 06/23/19 04:02 121 H 97 06/23/19 04:00 16 06/23/19 03:57 107 H 97 06/23/19 03:52 107 H 97 06/23/19 03:47 103 H 97 06/23/19 03:46 116 H 130/74 06/23/19 03:42 105 H 97 06/23/19 03:37 104 H 98 06/23/19 03:32 103 H 98 06/23/19 03:27 109 H 97 06/23/19 03:22 103 H 97 06/23/19 03:17 105 H 97 06/23/19 03:12 108 H 97 06/23/19 03:07 110 H 97 06/23/19 03:02 115 H 98 06/23/19 02:57 131 H 98 06/23/19 02:52 122 H 97 06/23/19 02:47 114 H 97 06/23/19 02:46 118 H 117/59 06/23/19 02:42 116 H 96 06/23/19 02:37 115 H 96 06/23/19 02:32 115 H 96 06/23/19 02:27 116 H 96 06/23/19 02:22 114 H 96 06/23/19 02:17 113 H 96 06/23/19 02:12 112 H 96 06/23/19 02:07 112 H 97 06/23/19 02:02 115 H 96 06/23/19 01:57 117 H 96 06/23/19 01:52 117 H 96 06/23/19 01:47 119 H 96 06/23/19 01:46 117 H 118/63 06/23/19 01:42 117 H 96 06/23/19 01:37 112 H 96 06/23/19 01:32 111 H 96 06/23/19 01:27 111 H 97 06/23/19 01:22 118 H 98 06/23/19 01:17 117 H 98 06/23/19 01:12 119 H 98 06/23/19 01:10 98.2 F 06/23/19 01:07 115 H 98 06/23/19 01:02 119 H 99 06/23/19 00:57 113 H 97 06/23/19 00:52 110 H 98 06/23/19 00:47 116 H 98 06/23/19 00:46 112 H 130/82 06/23/19 00:42 109 H 98 06/23/19 00:37 108 H 98 06/23/19 00:32 122 H 99 06/23/19 00:27 119 H 99 06/23/19 00:22 121 H 100 06/23/19 00:17 120 H 100 06/23/19 00:12 123 H 98 06/23/19 00:07 116 H 98 06/23/19 00:02 125 H 99 06/22/19 23:57 126 H 98 06/22/19 23:52 134 H 99 06/22/19 23:47 119 H 97 06/22/19 23:46 121 H 122/78 06/22/19 23:42 118 H 97 06/22/19 23:37 119 H 96 06/22/19 23:32 112 H 96 06/22/19 23:27 110 H 96 06/22/19 23:22 109 H 97 06/22/19 23:17 107 H 97 06/22/19 23:12 104 H 98 06/22/19 23:07 107 H 99 06/22/19 23:02 107 H 95 06/22/19 22:57 105 H 97 06/22/19 22:52 111 H 97 06/22/19 22:46 107 H 136/88 06/22/19 21:46 107 H 129/82 06/22/19 21:00 99.4 F 06/22/19 20:43 106 H 144/86 06/22/19 20:29 109 H 148/68 06/22/19 19:04 85 97 06/22/19 18:59 93 H 97 06/22/19 18:54 87 99 06/22/19 18:51 94 H 109/69 06/22/19 18:49 92 H 99 06/22/19 18:44 96 H 99 06/22/19 18:39 93 H 99 06/22/19 18:34 91 H 98 06/22/19 18:29 98 H 99 06/22/19 18:28 96 H 88 06/22/19 18:24 94 H 98 06/22/19 18:20 96 H 121/74 06/22/19 18:19 102 H 96 06/22/19 18:14 82 96 06/22/19 18:09 85 96 06/22/19 18:04 87 96 06/22/19 17:59 94 H 97 06/22/19 17:54 99 H 97 06/22/19 17:52 97.5 F L 85 16 100/61 98 06/22/19 17:49 102 H 100/61 99 06/22/19 17:44 80 100 06/22/19 17:39 76 100 06/22/19 17:34 77 100 06/22/19 17:29 74 100 06/22/19 17:24 75 18 100 06/22/19 17:21 74 96/52 06/22/19 17:19 75 100 06/22/19 17:14 76 100 06/22/19 17:10 79 100 06/22/19 17:04 82 100 06/22/19 17:00 75 100 06/22/19 16:54 73 100 06/22/19 16:50 74 116/65 06/22/19 16:49 73 100 06/22/19 16:44 77 100 06/22/19 16:39 86 100 06/22/19 16:35 80 100 06/22/19 16:30 75 18 100 06/22/19 16:24 76 100 06/22/19 16:21 75 94/52 06/22/19 16:19 75 100 06/22/19 16:16 76 96/54 06/22/19 16:14 79 100 06/22/19 16:09 82 100 06/22/19 16:04 79 100 06/22/19 15:59 77 100 06/22/19 15:54 77 100 06/22/19 15:49 84 98 06/22/19 15:45 82 99 06/22/19 15:39 80 99 06/22/19 15:34 89 97 06/22/19 15:30 94 H 98 06/22/19 15:25 93 H 100 06/22/19 15:19 91 H 96 06/22/19 15:14 93 H 96 06/22/19 15:11 89 109/61 06/22/19 15:10 90 97 06/22/19 15:09 86 112/59 06/22/19 15:07 102 H 122/59 06/22/19 15:05 114 H 117/59 100 06/22/19 15:03 89 114/65 06/22/19 15:01 96 H 110/63 06/22/19 15:00 18 06/22/19 14:59 100 H 110/62 100 06/22/19 14:57 92 H 104/59 06/22/19 14:55 91 H 109/55 100 06/22/19 14:53 88 109/55 06/22/19 14:51 94 H 109/56 06/22/19 14:50 92 H 100 06/22/19 14:49 92 H 107/55 06/22/19 14:47 92 H 105/56 06/22/19 14:45 114 H 80/60 98 06/22/19 14:43 111 H 89/51 06/22/19 14:41 85 89/53 06/22/19 14:40 93 H 99 06/22/19 14:39 93 H 99/58 06/22/19 14:37 98 H 96/53 06/22/19 14:35 104 H 92/51 97 06/22/19 14:33 106 H 100/53 06/22/19 14:32 197/151 06/22/19 14:30 112 H 97 06/22/19 14:26 105 H 150/83 06/22/19 14:24 98 H 96 06/22/19 14:23 108 H 144/89 06/22/19 14:21 106 H 158/90 06/22/19 14:19 106 H 147/93 97 06/22/19 14:17 100 H 135/93 06/22/19 14:15 96 H 18 135/90 97 06/22/19 14:13 105 H 147/90 06/22/19 14:11 100 H 142/89 06/22/19 14:10 105 H 96 06/22/19 14:09 104 H 138/85 06/22/19 14:04 105 H 96 06/22/19 13:57 115 H 97 06/22/19 13:53 105 H 95 06/22/19 13:48 104 H 92 06/22/19 13:45 98 H 90 06/22/19 13:43 111 H 98 06/22/19 13:39 96 H 91 06/22/19 13:38 96 H 91 06/22/19 13:33 124 H 97 06/22/19 13:27 102 H 96 06/22/19 13:23 106 H 95 06/22/19 13:21 144 H 84 06/22/19 13:18 122 H 98 06/22/19 13:16 102 H 92 06/22/19 13:13 101 H 20 95 06/22/19 13:09 101 H 125/65 06/22/19 13:08 107 H 98 06/22/19 13:03 122 H 98 06/22/19 12:58 101 H 97 06/22/19 12:00 16 06/22/19 11:00 18 06/22/19 10:40 97 H 95 06/22/19 10:35 96 H 94 06/22/19 10:30 96 H 93 06/22/19 10:25 102 H 138/98 98 06/22/19 10:20 99 H 97 06/22/19 10:15 95 H 98 06/22/19 10:10 89 97 06/22/19 10:05 97 H 96 06/22/19 10:03 18 06/22/19 10:00 90 96 06/22/19 09:55 90 135/90 98 06/22/19 09:50 94 H 97 06/22/19 09:44 94 H 98 06/22/19 09:38 102 H 97 Intake and Output 06/22/19 06/23/19 06/23/19 22:59 06:59 14:59 Intake Total 1000 Output Total 710 3400 1200 Balance -710 2400 -1200 Intake: IV 1000 Lactated Ringers 1,000 ml 1000 @ 125 mls/hr IV DIRECT JOHNNY Rx#:[id number] Output: Urine 710 3400 1200 Indwelling Catheter 710 3400 1200 Other: Total, Output Amount 600 800 500 Estimated Blood Loss 450 - Exam Breasts: Present: deferred Lungs: Present: Clear to auscultation, Normal air movement - Labs Labs: Abnormal lab results 06/22/19 06/22/19 06/22/19 Range/Units 11:45 16:37 20:06 Magnesium 5.40 H 5.80 H 6.20 H (1.7-2.3) mg/dL 06/23/19 06/23/19 Range/Units 00:27 06:08 Magnesium 5.70 H 5.80 H (1.7-2.3) mg/dL
[2019-06-23] MEDS ORDERED: IBUPROFEN 600 MG TAB PO SCH (10:00)
[2019-06-23] MEDS ORDERED: PRENATAL VIT27-FE FUMARATE-FOLIC ACID VIT TAB PO SCH (10:00)
[2019-06-23] MEDS ORDERED: DOCUSATE SODIUM 100 MG CAP PO SCH (10:00)
[2019-06-23 14:16] LABS: Hematocrit 26.9 % (30.3-42.9); Hemoglobin 8.9 gm/dl (10.1-14.3)
[2019-06-23] MEDS ORDERED: FERROUS SULFATE 325 MG TAB PO SCH (15:00)
[2019-06-23] MEDS ORDERED: PROMETHAZINE 25 MG RECT SUPP PR PRN (17:38)
[2019-06-23] MEDS ORDERED: ONDANSETRON 4 MG/2 ML INJ IV PRN (17:38)
[2019-06-23] MEDS: IBUPROFEN 600 MG TAB PO SCH (23:05)
[2019-06-24] MEDS: IBUPROFEN 600 MG TAB PO SCH ×2 (05:15→13:50)
--- NOTE | 2019-06-24 07:55 | Discharge Summary ---
Providers - Providers Date of Admission: 06/21/19 23:18 Date of discharge: 06/24/19 (Pt desires to be discharged home.) Attending physician: HOA LAWS 06/23/19 08:41 Consult to [employer] Sales Representative [CONS] Routine Reason For Exam: assistance with , SNS Primary care physician: HOA LAWS Hospitalization Reason for admission: induction of labor (IOL due to Pre Eclampsia) Delivery: Episiotomy: none Laceration: none Other procedures: none complications: none Discharge diagnosis: IUP at term delivered baby: female Hospital course: Pt is 23 y.o. was an IOL for Pre E @ term, s/p . She is doing well. Voiding, passing flatus, and ambulating without difficulty. VSS, fundus firm, minimal lochia rubra. H/H 8.9/26.9. Pt is undecided at this time about BC. Pt denies LAIRD, blurred vision, spots before her eyes, chest pain, upper abdominal pain. Her BP's have been 120's/70's. Pt to be d/c home today with instructions. To return to clinic in 1 week for BP check. Continue to take vitamins at home. Condition at discharge: Good Disposition: DC-30 STILL A PATIENT Plan - Provider Discharge Summary Activity: routine, no sex for 6 weeks, no heavy lifting 4 weeks, no strenuous exercise Diet: routine Instructions: routine Additional instructions: [] Smoking cessation referral if applicable(refer to patient education folder for contact #) [] Refer to [facility] Booklet Call your doctor immediately for: * Fever > 100.5 * Heavy vaginal bleeding ( >1 pad per hour) * Severe persistent headache * Shortness of breath * Reddened, hot, painful area to leg or breast * Drainage or odor from incision. * Keep incision clean and dry at all times and follow doctor's instructions regarding bathing/showering - Follow up plan Follow up: HOA LAWS MD [Primary Care Provider] - 7 Days (Congratulations!!! Please schedule an appointment in the office to check your blood pressure in 1 week. Please schedule a visit in the office in 4 weeks. Continue to take vitamins at home. Call the office if you have any questions or concerns. [address] [place] [address] )
[2019-06-24] MEDS ORDERED: TETANUS,DIPH,PERTUSS(ACELL) VACCINE 0.5 ML SYRINGE IM ONE (09:44)
[2019-06-24] MEDS ORDERED: FLU VACC QUAD 2019-20 (3 YR UP)/PF 60 MCG/0.5 ML SYRINGE IM ONE (12:00)
[2019-06-24 16:10] VITALS: BP 130/87
== END 2019-06-24 16:44 | disposition home or self-care (01) | DRG 775 ==
LOC: TRG 21:26 → LD 23:18 → OB 06-23 17:13
PROVIDERS: ADMIT Obstetrics & Gynecology; ATTEND Obstetrics & Gynecology
PROC: 10E0XZZ Delivery of Products of Conception, External Approach (ICD-10-PCS; principal; 2019-06-22)
PROC: 0KQM0ZZ Repair Perineum Muscle, Open Approach (ICD-10-PCS; 2019-06-22)
PROC: 3E0R3BZ Introduction of Anesthetic Agent into Spinal Canal, Percutaneous Approach (ICD-10-PCS; 2019-06-22)
PROC: 00HU33Z Insertion of Infusion Device into Spinal Canal, Percutaneous Approach (ICD-10-PCS; 2019-06-22)
PROC: 3E0P7VZ Introduction of Hormone into Female Reproductive, Via Natural or Artificial Opening (ICD-10-PCS; 2019-06-22)
PROC: 3E0234Z Introduction of Serum, Toxoid and Vaccine into Muscle, Percutaneous Approach (ICD-10-PCS; 2019-06-24)
DX: O13.4 Gestational [pregnancy-induced] hypertension without significant proteinuria, complicating childbirth (principal); O14.94 Unspecified pre-eclampsia, complicating childbirth; O69.81X0 Labor and delivery complicated by cord around neck, without compression, not applicable or unspecified; O99.62 Diseases of the digestive system complicating childbirth; O99.214 Obesity complicating childbirth; K21.9 Gastro-esophageal reflux disease without esophagitis; O71.4 Obstetric high vaginal laceration alone; Z37.0 Single live birth; Z3A.39 39 weeks gestation of pregnancy; Z23 Encounter for immunization; Z91.013 Allergy to seafood
CPT/HCPCS: 36415; 59200; 81001; 82565; 83615; 83735; 84450; 84460; 84550; 85014; 85018; 85027; 86850; 86900; 86901; G0378; J2405; J2590; J3010; J3475; J3490; J7120

== ENCOUNTER 2020-02-17 11:39 | Outpatient (CLI) | payer OTHER ==
[2020-02-17 12:11] VITALS: BP 103/64
[2020-02-17] MEDS ORDERED: LACTATED RINGERS 500 ML IV ONE (12:42)
== END 2020-02-17 12:45 | disposition home or self-care (01) ==
LOC: TRG 11:39 → APU 11:41 → TRG 12:45
PROVIDERS: ATTEND Obstetrics & Gynecology
DX: O26.892 Other specified pregnancy related conditions, second trimester (principal); R51 Headache; Z3A.23 23 weeks gestation of pregnancy
CPT/HCPCS: 59025

== ENCOUNTER 2020-04-14 15:44 | Outpatient (CLI) | payer OTHER ==
[2020-04-14 16:59] LABS: Bilirubin,Urine NEG (Negative); Blood,Urine NEG (Negative); Color,Urine Yellow (Yellow); Protein,Urine <15 mg/dL mg/dL (Negative)
[2020-04-14] MEDS ORDERED: LACTATED RINGERS 1,000 ML IV SCH (17:00)
[2020-04-14 17:01] VITALS: BP 116/63
[2020-04-14 17:04] LABS: WBC,Urine < 1.0 /HPF (0.0-6.0)
== END 2020-04-14 18:01 | disposition home or self-care (01) ==
LOC: TRG 15:44 → APU 15:48 → TRG 18:01
PROVIDERS: ATTEND Obstetrics & Gynecology
DX: O26.893 Other specified pregnancy related conditions, third trimester (principal); Z3A.31 31 weeks gestation of pregnancy
CPT/HCPCS: 59025; 81001

== ENCOUNTER 2020-05-21 16:59 | Outpatient (CLI) | payer OTHER ==
[2020-05-21] MEDS ORDERED: LACTATED RINGERS 500 ML IV ONE (17:15)
[2020-05-21 17:22] VITALS: BP 117/67
--- NOTE | 2020-05-21 19:25 | Ultrasound Report ---
ULTRASOUND OBSTETRIC LIMITED INDICATION / CLINICAL INFORMATION: rupture membranes. Clinical Gestational Age (GA): 36.5 weeks.days COMPARISON: None available. FINDINGS: HEART RATE (beats per minute): 139 AMNIOTIC FLUID INDEX (cm) = 13.6 (normal = 7-24 cm) PRESENTATION: Cephalic. ADDITIONAL FINDINGS: None. IMPRESSION: 1. No significant abnormality. Signer Name: Pawan Oliver MD Signed: 05/21/2020 7:21 PM Workstation Name: [id number]
== END 2020-05-21 19:13 | disposition home or self-care (01) ==
LOC: TRG 16:59 → APU 17:00 → TRG 19:13
PROVIDERS: ATTEND Obstetrics & Gynecology
DX: O42.913 Preterm premature rupture of membranes, unspecified as to length of time between rupture and onset of labor, third trimester (principal); Z3A.36 36 weeks gestation of pregnancy
CPT/HCPCS: 59025; 76815

== ENCOUNTER 2020-06-01 22:50 | Outpatient (CLI) | payer OTHER ==
[2020-06-01 23:29] VITALS: BP 112/66
== END 2020-06-02 00:15 | disposition home or self-care (01) ==
LOC: TRG 22:50 → APU 23:00 → TRG 06-02 00:35
PROVIDERS: ATTEND Obstetrics & Gynecology
DX: O42.92 Full-term premature rupture of membranes, unspecified as to length of time between rupture and onset of labor (principal); Z3A.38 38 weeks gestation of pregnancy
CPT/HCPCS: 59025

== ENCOUNTER 2020-06-08 11:47 | Outpatient (CLI) | payer OTHER ==
[2020-06-08 12:44] VITALS: BP 119/74
== END 2020-06-08 13:11 | disposition home or self-care (01) ==
LOC: TRG 11:47 → APU 11:50 → TRG 13:11
PROVIDERS: ATTEND Obstetrics & Gynecology
DX: O47.1 False labor at or after 37 completed weeks of gestation (principal); Z3A.39 39 weeks gestation of pregnancy
CPT/HCPCS: 59025

== ENCOUNTER 2020-06-14 11:45 | Outpatient (CLI) | payer OTHER ==
[2020-06-14 12:53] VITALS: BP 111/62
== END 2020-06-14 13:06 | disposition home or self-care (01) ==
LOC: TRG 11:45 → APU 11:48 → TRG 13:06
PROVIDERS: ATTEND Obstetrics & Gynecology
DX: Z34.93 Encounter for supervision of normal pregnancy, unspecified, third trimester (principal); Z3A.40 40 weeks gestation of pregnancy
CPT/HCPCS: 59025

== ENCOUNTER 2020-06-15 03:22 | Inpatient (IN) | payer OTHER ==
[2020-06-15] MEDS ORDERED: LACTATED RINGERS 1,000 ML ONE (04:02)
[2020-06-15] MEDS ORDERED: OXYTOCIN DRIP 30,000 MILLIUNITS/500 ML BAG IV ONE (04:02)
[2020-06-15] MEDS ORDERED: fentaNYL 100 MCG/2 ML INJ IV PRN (04:12)
[2020-06-15] MEDS ORDERED: MINERAL OIL 30 ML ORAL LIQD PO PRN (04:12)
[2020-06-15] MEDS ORDERED: TERBUTALINE 1 MG/1 ML INJ SUB-Q PRN (04:12)
[2020-06-15] MEDS ORDERED: BUTORPHANOL 2 MG/1 ML INJ IV PRN (04:12)
[2020-06-15] MEDS ORDERED: ePHEDrine SULFATE 50 MG/1 ML INJ IV PRN ×2 (04:12→04:15)
[2020-06-15] MEDS ORDERED: LIDOCAINE (2%) 20 MG/1 ML VIAL 20 ML MDV INFILTRATI ONE (04:12)
[2020-06-15] MEDS ORDERED: NALOXONE 2 MG/2 ML INJ IV PRN (04:15)
--- NOTE | 2020-06-15 04:15 | Anesthesia Consultation ---
Anesthesia Consult and Med Hx Date of service: 06/15/20 - Airway Anesthetic Teeth Evaluation: Good ROM Head & Neck: Adequate Mental/Hyoid Distance: Adequate Mallampati Class: Class II Intubation Access Assessment: Good - Pulmonary Exam CTA: Yes - Cardiac Exam Cardiac Exam: RRR - Pre-Operative Health Status ASA Pre-Surgery Classification: ASA2 Proposed Anesthetic Plan: Epidural - Pulmonary Hx Smoking: No Hx Asthma: No Hx Respiratory Symptoms: No SOB: No COPD: No Hx Pneumonia: No Hx Sleep Apnea: No - Cardiovascular System Hx Hypertension: No Hx Coronary Artery Disease: No Hx Heart Attack/AMI: No Hx Angina: No Hx Percutaneous Transluminal Coronary Angioplasty (PTCA): No Hx Cardia Arrhythmia: No Hx Pacemaker: No Hx Internal Defibrillator: No Hx Valvular Heart Disease: No Hx Heart Murmur: No Hx Peripheral Vascular Disease: No - Central Nervous System Hx Neuromuscular Disorder: No Hx Seizures: No CVA: No Hx Back Pain: No Hx Psychiatric Problems: No - Gastrointestinal Hx Ulcer: No Hx Gastroesophageal Reflux Disease: Yes - Endocrine Hx Renal Disease: No Hx End Stage Renal Disease: No Hx Cirrhosis: No Hx Liver Disease: No Hx Insulin Dependent Diabetes: No Hx Non-Insulin Dependent Diabetes: No Hx Thyroid Disease: No Hx Hypothyroidism: No Hx Hyperthyroidism: No - Hematic Hx Anemia: No Hx Sickle Cell Disease: No - Other Systems Hx Alcohol Use: No Hx Substance Use: No Hx Cancer: No Hx Obesity: Yes
[2020-06-15 04:21] LABS: Hematocrit 30.7 % (30.3-42.9); Hemoglobin 10.2 gm/dl (10.1-14.3); Mean Corpuscular HGB Conc 33 % (30-34); Mean Corpuscular Volume 84 fl (79-97); Platelet Count 200 K/mm3 (140-440); Red Blood Count 3.67 M/mm3 (3.65-5.03); Red Cell Distribution Width 16.8 % (13.2-15.2)
[2020-06-15] MEDS: LACTATED RINGERS 1,000 ML IV SCH ×2 (04:41→04:42)
--- NOTE | 2020-06-15 04:44 | History and Physical Report ---
History of Present Illness Date of examination: 06/15/20 (pt presented in active labor) Chief complaint: worsening ctx History of present illness: EDC Calculations LMP: 06/14/2020 EDC Confirmation: 06/14/2020 Gestational Age: 11 1/7 weeks Past History : 3 Past Surgical History: negative Past Medical History Anesthesia Complications: negative Anemia: negative Autoimmune Disorder: negative Bleeding Disorder: negative Blood Transfusions: negative Breast Disease: negative Diabetes: negative Heart Disease: negative Hypertension: positive, gHTN Hepatitis/Liver Disease: negative Kidney Disease/UTI: negative Neurologic/Epilepsy/Migraines: negative Phlebitis/Varicosities: negative Psychiatric: negative Pulmonary Disease/Asthma: negative Thyroid Disease: negative Hospitalizations: negative Surgery (Non-legal writing professor): negative Abnormal PAP: negative CUBA Exposure: negative Infertility: negative Uterine Anomaly: negative Uterine Surgery (not C/S): negative Other Gynecologic Problems: negative Social Hx: Smoking History: Patient has never smoked. Infection History Hx of STD: none HIV Risk Eval: low risk Hepatitis B Risk Eval: low risk Personal hx. of genital herpes: no Partner hx. of genital herpes: no Rash, Viral, or Febrile illness since last LMP? no Varicella/Chicken Pox Status: Unknown Genetic History Congenital Heart Defect: Mom: no Dad: no Jeffrey Disease: Mom: no Dad: no Thalassemia Mom: no Dad: no Neural Tube Defect Mom: no Dad: no Down's Syndrome Mom: no Dad: no Mario-Sachs Mom: no Dad: no Sickle Cell Disease/Trait Mom: yes Dad: no Hemophilia Mom: no Dad: no Muscular Dystrophy Mom: no Dad: no Cystic Fibrosis Mom: no Dad: no Archer Chorea Mom: no Dad: no Mental Retardation Mom: no Dad: no Fragile X Mom: no Dad: no Other Genetic/Chromosomal Disorder Mom: no Dad: no Child w/other defect Mom: no Dad: no Enviromental Exposures Xray Exposure: no Medication, drug, or alcohol use since LMP: no Chemical/Other Exposure: no Exposure to Cat Liter: no Hx of Parvovirus (Fifth Disease): no Occupational Exposure to Children: none Current Allergies (reviewed today): * SHRIMP (Critical) Past History - Obstetrical History Expected Date of Delivery: 06/14/20 Actual Gestation: 40 Week(s) 1 Day(s) : 3 Para: 1 Hx # Term Pregnancies: 1 Number of Pregnancies: 0 Spontaneous Abortions: 1 Induced : 0 Number of Living Children: 1 Medications and Allergies Allergies Allergy/AdvReac Type Severity Reaction Status Date / Time seafood AdvReac Severe Anaphylaxis Uncoded 06/11/19 18:22 Home Medications Medication Instructions Recorded Confirmed Last Taken Type No Known Home Medications [No 06/15/20 06/15/20 Unknown History Reported Home Medications] Active Meds: Active Medications Butorphanol Tartrate (Butorphanol 2 Mg/1 Ml Inj) 2 mg IV Q2H PRN PRN Reason: Pain , Severe (7-10) Ephedrine Sulfate (Ephedrine Sulfate 50 Mg/1 Ml Inj) 10 mg IV Q2M PRN PRN Reason: Hypotension Fentanyl (Fentanyl 100 Mcg/2 Ml Inj) 100 mcg IV Q2H PRN PRN Reason: Pain,Severe (7-10) LABOR PAIN Oxytocin/Sodium Chloride (Pitocin/Ns 30 Unit/500ml) 30 units in 500 mls @ 2 mls/hr IV TITR JOHNNY; Protocol Lactated Ringer's (Lactated Ringers) 1,000 mls @ 125 mls/hr IV DIRECT JOHNNY Last Admin: 06/15/20 04:42 Dose: 125 mls/hr Documented by: Oxytocin/Sodium Chloride (Pitocin/Ns 30 Unit/500ml) 30 units in 500 mls @ 40 mls/hr IV TITR JOHNNY; Protocol Fentanyl/Bupivacaine/Sodium Chlor (Fentanyl-Bupiv 2 Mcg/Ml-0.125%) 200 mcg in 100 mls @ 12 mls/hr EPIDURAL TITR JOHNNY; Protocol Mineral Oil (Mineral Oil 30 Ml Oral Liqd) 30 ml PO QHS PRN PRN Reason: Constipation Naloxone HCl (Naloxone 2 Mg/2 Ml Inj) 0.2 mg IV Q5M PRN PRN Reason: Respiratory sedation Terbutaline Sulfate (Terbutaline 1 Mg/1 Ml Inj) 0.25 mg SUB-Q ONCE PRN PRN Reason: Hyperstimulation/Hypertonicity Review of Systems All systems: negative - Vital Signs Vital signs: Vital Signs Temp Pulse Resp BP 97.9 F 84 18 112/68 06/15/20 03:41 06/15/20 03:41 06/15/20 03:41 06/15/20 03:41 Temp Pulse Resp BP Pulse Ox 98.9 F 113 H 18 145/89 100 06/15/20 04:02 06/15/20 04:26 06/15/20 04:02 06/15/20 04:02 06/15/20 04:26 - Physical Exam Breasts: Positive: deferred Cardiovascular: Regular rate, Normal S1, Normal S2 Lungs: Positive: Clear to auscultation Abdomen: Positive: normal appearance, soft, normal bowel sounds. Negative: distention, tenderness Genitourinary (Female): Positive: normal external genitalia Vulva: both: normal Vagina: Positive: normal moisture. Negative: discharge Cervix: Negative: lesion, discharge Uterus: Positive: normal size, normal contour Adnexa: both: normal Anus/Rectum: Positive: normal perianal skin, heme negative. Negative: rectal mass, hemorrhoids Extremities: Positive: normal Deep Tendon Reflex Grade: Normal +2 - Obstetrical FHR: category 1 Uterine Contraction Monitor Mode: External Cervical Dilatation: 9 (BBOW) Cervical Effacement Percentage: 100 station: -1 Uterine Contraction Pattern: Regular Uterine Tone Measurement Phase: Resting Uterine Contraction Intensity: Moderate Results Result Diagrams: 06/15/20 04:08 Abnormal lab results 06/15/20 Range/Units 04:08 RDW 16.8 H (13.2-15.2) % All other labs normal. GBS NEGATIVE HBsAg Screen Negative Negative *1 RPR Non Reactive Non Reactive *2 Rubella Antibodies, IgG 1.27 index Immune >0.99 *3 Non-immune <0.90 Equivocal 0.90 - 0.99 Immune >0.99 ABO Grouping O *4 Rh Factor Positive *5 Please note: Prior records for this patient's ABO / Rh type are not available for additional verification. Antibody Screen Negative Negative *6 WBC 6.3 x10E3/uL 3.4-10.8 *7 RBC 3.97 x10E6/uL 3.77-5.28 *8 Hemoglobin 11.1 g/dL 11.1-15.9 *9 Hematocrit 35.4 % 34.0-46.6 *10 MCV 89 fL 79-97 *11 MCH 28.0 pg 26.6-33.0 *12 MCHC [L] 31.4 g/dL 31.5-35.7 *13 RDW [H] 17.0 % 11.7-15.4 *14 Platelets 221 x10E3/uL 150-450 *15 Neutrophils 62 % Not Estab. *16 Lymphs 29 % Not Estab. *17 Monocytes 8 % Not Estab. *18 Eos 1 % Not Estab. *19 Basos 0 % Not Estab. *20 ! Immature Cells <No Reported Value> *21 Neutrophils (Absolute) 3.9 x10E3/uL 1.4-7.0 *22 Lymphs (Absolute) 1.8 x10E3/uL 0.7-3.1 *23 Monocytes(Absolute) 0.5 x10E3/uL 0.1-0.9 *24 Eos (Absolute) 0.1 x10E3/uL 0.0-0.4 *25 Baso (Absolute) 0.0 x10E3/uL 0.0-0.2 *26 ! Immature Granulocytes 0 % Not Estab. *27 ! Immature Grans (Abs) 0.0 x10E3/uL 0.0-0.1 *28 ! NRBC <No Reported Value> *29 Hematology Comments: <No Reported Value> *30 Tests: (2) AFP Tetra ([id number]) ! Results Report *31 ! Test Results: *Screen Negative* *32 ! Gest. Age on Collection Date 16.0 WEEKS *33 ! Gestat. Age Based On Ultrasound *34 16.0 on 12/29/2019 Tests: (3) HIV Ag/Ab with Reflex ([id number]) HIV Screen 4th Generation wRfx Non Reactive Non Reactive *55 Tests: (4) HCV Ab w/Rflx to Verification ([id number]) ! HCV Ab <0.1 s/co ratio 0.0-0.9 *56 Tests: (5) Comment: ([id number]) ! Comment: SPRCS *57 Non reactive HCV antibody screen is consistent with no HCV infection, unless recent infection is suspected or other evidence exists to indicate HCV infection. Tests: (6) Urine Culture, Routine ([id number]) Urine Culture, Routine Final report *58 Tests: (7) Result ([id number]) ! Result 1 No growth *59 Assessment and Plan 24yo @ 40w1d in active labor SVE 7-8 on arrival by crop and soil scientist GBS Negative All orders in EMR Anticipate delivery
[2020-06-15] MEDS ORDERED: fentaNYL-BUPIV 2 MCG/ML-0.125% 200 MCG/100 ML BAG EPIDURAL SCH (05:00)
[2020-06-15] MEDS ORDERED: OXYTOCIN DRIP 30 UNITS/500 ML BAG IV SCH ×2 (05:00)
--- NOTE | 2020-06-15 06:35 | Procedure Note ---
OB Delivery Note - Delivery Date of Delivery: 06/15/20 Logistics Management Specialist: DARCI PETIT Estimated blood loss: 300cc - Vaginal Delivery presentation: vertex Delivery position: OA Intrapartum events: none Delivery induction: none Delivery augmentation: rupture of membranes Delivery monitor: external uterine, internal FHT Route of delivery: Delivery placenta: spontaneous Delivery cord: 3 umbilical vessels Episiotomy: none Delivery laceration: 1st degree (no repair) Delivery comments: Count correct X 2 live born male over intact perineum. Baby skin to skin on mom's abdomen Cord blood obtained Placenta and membrane delivered complete and intact, 3 vessel cord. Pitocin IVFs. 1st degree laceration No repair indicated. Pt taught wound care. 8/9, EBL 300, Wgt 6-11 Mom and baby remain LDR stable. - Infant A at 1 minute: 8 at 5 minutes: 9 Gender: Male (wgt 6-11 Jordin)
[2020-06-15] MEDS ORDERED: IBUPROFEN 600 MG TAB PO ONE (15:06)
[2020-06-15] MEDS ORDERED: PROMETHAZINE 25 MG RECT SUPP PR PRN (18:39)
[2020-06-15] MEDS ORDERED: BENZOCAINE/MENTHOL 20/0.5% TOP SPRAY 56 GM TP PRN (18:39)
[2020-06-15] MEDS ORDERED: ACETAMINOPHEN 325 MG TAB PO PRN (18:39)
[2020-06-15] MEDS ORDERED: WITCH HAZEL/ GLYCERIN PAD TP PRN (18:39)
[2020-06-15] MEDS ORDERED: MAGNESIUM HYDROXIDE (MOM) ORAL LIQD UDC PO PRN (18:39)
[2020-06-15] MEDS ORDERED: diphenhydrAMINE 25 MG CAP PO PRN (18:39)
[2020-06-15] MEDS ORDERED: PROMETHAZINE 25 MG TAB PO PRN (18:39)
[2020-06-15] MEDS ORDERED: LANOLIN/ZINC/DIMETHICONE (LANSINOH) 7 GM TP PRN (18:39)
[2020-06-15] MEDS ORDERED: ONDANSETRON 4 MG/2 ML INJ IV PRN (18:39)
[2020-06-15 19:47] LABS: Hematocrit 27.5 % (30.3-42.9)
[2020-06-16] MEDS: IBUPROFEN 800 MG TAB PO SCH ×4 (00:45→13:00)
[2020-06-16] MEDS ORDERED: DIPHtheria,PERTUSSIS(ACELL),TETANUS VACCINE/PF 0.5 ML VIAL IM ONE (06:07)
--- NOTE | 2020-06-16 08:42 | Discharge Summary ---
Providers - Providers Date of Admission: 06/15/20 04:55 Date of discharge: 06/16/20 (Pt has strong desire to go home. ) Attending physician: HOA LAWS 06/15/20 18:39 Consult to Bowling Alley Operator [CONS] Routine Reason For Exam: assistance with , SNS Primary care physician: HOA LAWS Hospitalization Reason for admission: active labor Delivery: Episiotomy: none Laceration: 1st degree (No repair needed. ) Other procedures: none complications: none Discharge diagnosis: IUP at term delivered [place] baby: male Pertinent studies: Spoke with pt regarding the need for iron tablet daily d/t H/H being 9.0/27.5. Also discussed dietary sources of iron. Pt currently denies feeling dizzy, lightheaded, short of breath, or having any chest pain. Hospital course: S: Pt doing well. Ambulating, voiding, and passing flatus okay. O: VSS. I&O's adequate. H/H 9.0/27.9 asymptomatic anemia from delivery. Fundus firm, minimal bleeding noted. A: 24 y.o. s/p , in good condition for discharge home. P: Discharge home with instructions. To schedule a visit in 4 weeks. To schedule son's circumcision appointment in 1 week. Condition at discharge: Good Disposition: DC-01 TO HOME OR SELFCARE Plan - Discharge Medications Prescriptions: Docusate Sodium [Colace] 100 mg PO BID PRN #60 capsule PRN Reason: Constipation Lidocain2.5%/Prilocai2.5% [Emla] 1 applic TP ONCE #1 tube Ibuprofen [Motrin] 800 mg PO Q8HR PRN #30 tablet PRN Reason: Pain, Moderate (4-6) - Provider Discharge Summary Activity: routine, no sex for 6 weeks, no heavy lifting 4 weeks, no strenuous exercise Diet: routine Instructions: routine Additional instructions: [] Smoking cessation referral if applicable(refer to patient education folder for contact #) [] Refer to [facility] Booklet Call your doctor immediately for: * Fever > 100.5 * Heavy vaginal bleeding ( >1 pad per hour) * Severe persistent headache * Shortness of breath * Reddened, hot, painful area to leg or breast * Drainage or odor from incision. * Keep incision clean and dry at all times and follow doctor's instructions regarding bathing/showering - Follow up plan Follow up: HOA LAWS MD [Primary Care Provider] - 7 Days (Congratulations! Please schedule your son's circumcision appointment in 1 week. You have been prescribed EMLA cream. Do not use this cream at home, but bring it with you to your son's circumcision appointment. Please schedule your visit in 4 weeks. If you have any questions or concerns after discharge, please do not hesitate to call the office at [phone]. )
[2020-06-16 17:52] VITALS: BP 115/72
== END 2020-06-16 17:15 | disposition home or self-care (01) | DRG 775 ==
LOC: TRG 03:22 → APU 03:23 → LD 04:03 → TRG 04:55 → OB 09:21
PROVIDERS: ADMIT Obstetrics & Gynecology; ATTEND Obstetrics & Gynecology
PROC: 10E0XZZ Delivery of Products of Conception, External Approach (ICD-10-PCS; principal; 2020-06-15)
PROC: 3E0234Z Introduction of Serum, Toxoid and Vaccine into Muscle, Percutaneous Approach (ICD-10-PCS; 2020-06-16)
DX: O99.214 Obesity complicating childbirth (principal); Z37.0 Single live birth; Z3A.40 40 weeks gestation of pregnancy; Z23 Encounter for immunization; Z20.828 Contact with and (suspected) exposure to other viral communicable diseases; O99.62 Diseases of the digestive system complicating childbirth; E66.9 Obesity, unspecified; K21.9 Gastro-esophageal reflux disease without esophagitis; Z91.013 Allergy to seafood; O70.0 First degree perineal laceration during delivery
CPT/HCPCS: 36415; 59025; 85014; 85018; 85027; 86592; 86850; 86900; 86901; G0378; J3010; J7120; U0003